=== PATIENT | female | born 1995 | race Asian ===

== ENCOUNTER 2018-06-02 07:45 | Inpatient (IN) ==
[2018-06-02] MEDS ORDERED: LACTATED RINGER'S 1,000 ML IV PRN (14:24)
[2018-06-02] MEDS ORDERED: OXYTOCIN 30 UNITS/500 ML BAG IV PRN (14:24)
--- NOTE | 2018-06-02 14:45 | History & Physical Report ---
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 at 36.2 wks with ICP s/p steroid series for FLM Proteinuria with normal B's, labs Discussed the findings, prematurity, risks of ICP, [facility] recommendation After all discussion she agreed with IOL/ Cervical ripening Plan admit, monitor, labs, cervical ripening with PO Cytotec (2) Proteinuria affecting in third trimester: History of Present Illness Chief Complaint: Induction Primary Care Provider: [facility] Patient is a 22 yo at 36.2 wks who is scheduled for IOL for ICP, recommended by MFM She has been having generalized itching for 4 months Nothing has been helping Her bile acids were elevated, started on Trino about 2 weeks ago, still itching Her bile acids were 12 about 3 weeks ago Recommended by M to complete steroids series and then IOL after 36 weeks She had seconds dose yesterday afternoon She had been having PARKS's not going away with Tylenol for the last 2 weeks She was spilling protein in urine, 2-3+ Her BPs have been normal, platelets LFTS were normal Her P/C ratio was over 800 mg. She c/o increased swelling for the last few days, on her feet and hands. Denies ctxs/ LOF/VB +FM's Allergies Allergy/AdvReac Type Severity Reaction Status Date / Time peach Allergy Rash Verified 04/30/18 20:56 Home Medications Home Medications Medication Instructions Recorded Confirmed Type ursodiol 300 mg PO BID 06/02/18 06/02/18 History Patient History Medical History Depression situational; no meds Kidney stones Polycystic ovarian syndrome dx 2017 Family History Grandmother (Paternal) Cancer Mother Hypertension Social History Preferred Language: [place] Communication Ability: Effective Beliefs That Will Affect Care: None marital status: Current Living Situation: Spouse Other Information That Helps Us Care for You: No Feels Safe at Home: Yes Smoking Status: Never smoker Hx Alcohol Use: No Hx Substance Use: No [employer] History No h/o STD's, no GC/ Chlamydia/ HSV Review of Systems All systems reviewed & are unremarkable except as noted in HPI & below Physical Exam Vital Signs (Past 24 Hours): Last Vital Signs Temp 36.7 C 06/02/18 13:14 Pulse 100 H 06/02/18 13:19 Resp 24 06/02/18 13:14 BP 118/70 06/02/18 13:19 Constitutional: WD/WN, vitals as above well nourished and comfortable Gastrointestinal (Abdomen): Abd: soft, NT, gravid Musculoskeletal: Ext: NT, 1+/1+ edema, no clonus Genitourinary: Cervix: ft/ 50%/ -3, posterior, vertex Monitoring External Monitor 130's reactive Tocodynamometer No ctxs
[2018-06-02 14:50] LABS: Hematocrit (blood only) 30.3 % (37-47); Hemoglobin 10.2 g/dL (12.0-16.0); Mean Corpuscular Volume 87.1 fL (80-100); Mean Platelet Volume 9.6 fL (7.4-10.4); Nucleated RBC # (auto) 0.06 K/uL (0-0); Nucleated RBC % (auto) 0.6 %; Platelet Count 248 K/uL (130-400); RDW Coefficient of Variation 13.4 % (11.5-14.5); RDW Standard Deviation 42.7 fL (36.4-46.3); Red Blood Count 3.48 M/uL (4.2-5.4); White Blood Count 10.08 K/uL (4.8-10.8)
[2018-06-02 14:51] LABS: Mean Corpuscular Hgb Conc 33.7 g/dL (32-36)
[2018-06-02] MEDS ORDERED: miSOPROStol 50 MCG TAB PO SCH (15:00)
[2018-06-02 15:07] LABS: Albumin Level 2.8 gm/dl (3.4-5.0); BUN Creatinine Ratio 21.2 (10-20); Calcium 8.5 mg/dl (8.5-10.1); Creatinine Clr Calc Pharmacy 134.3 ml/min; Est GFR (African American) 139.7; Est GFR (Non-African American) 120.6; Potassium 3.9 mmol/L (3.5-5.1)
[2018-06-02 15:10] LABS: Albumin Globulin Ratio 0.7 (0.9-2); Bilirubin,Total 0.1 mg/dl (0.2-1); Globulin 4.1 gm/dl (2.5-4.0); Total Protein 6.9 gm/dl (6.4-8.2)
[2018-06-02] MEDS ORDERED: BUTORPHANOL TARTRATE 2 MG/ML VIAL IV PRN (15:21)
[2018-06-02] MEDS ORDERED: ACETAMINOPHEN 325 MG TAB PO PRN (15:21)
[2018-06-02] MEDS: PRENATAL VITAMIN 1 TAB PO SCH (16:55)
[2018-06-02] MEDS: LACTATED RINGER'S 1,000 ML IV SCH (17:15)
--- NOTE | 2018-06-02 19:20 | Obstetrical Progress Note ---
Date of Service June 02, 2018 Subjective Patient is reevaluated Due for 2nd dose of Cytotec She feels ctxs, some mild some painful 06/09 No LOF/VB +FM FHR categ I [place] ctxs q1-4 min, some mild some moderate Will hold for next dose for now and then reevaluate Physical Exam Vital Signs (Past 24 Hours): Last Vital Signs Temp 36.8 C 06/02/18 17:18 Pulse 94 H 06/02/18 19:15 Resp 18 06/02/18 17:18 BP 140/86 06/02/18 19:15
--- NOTE | 2018-06-02 19:41 | Obstetrical Progress Note ---
Date of Service June 02, 2018 Subjective Her ctxs spaced out after she used BR Desires to eat Plan to feed her with dinner and then Cervidil Continue to monitor Physical Exam Vital Signs (Past 24 Hours): Last Vital Signs Temp 37.2 C 06/02/18 19:15 Pulse 94 H 06/02/18 19:15 Resp 16 06/02/18 19:15 BP 140/86 06/02/18 19:15
[2018-06-02] MEDS ORDERED: DINOPROSTONE 10 MG INSERT PV ONE (20:00)
[2018-06-02] MEDS: URSODIOL 300 MG CAP PO SCH (20:50)
[2018-06-03] MEDS: LACTATED RINGER'S 1,000 ML IV SCH ×4 (00:07→16:17)
--- NOTE | 2018-06-03 06:42 | Obstetrical Progress Note ---
Date of Service June 03, 2018 Subjective Patient is reevaluated She received Stadol for pain at 0330am , it helped to sleep Now pain is coming back Contractions q 1-2 min Cervidil is removed, cervix 1-2 cm/ 60%/ -3, posterior FHR 130's with accels and decreased variability since IV stadol, no decels IVF bolus is going Continue to monitor closely Physical Exam Vital Signs (Past 24 Hours): Last Vital Signs Temp 36.8 C 06/03/18 03:35 Pulse 91 H 06/03/18 06:38 Resp 20 06/03/18 03:35 BP 132/82 06/03/18 04:29 Pulse Ox 97 06/03/18 06:38
[2018-06-03] MEDS ORDERED: fentaNYL citrate 100 MCG/2 ML VIAL ONE (08:25)
[2018-06-03] MEDS ORDERED: ePHEDrine sulfate 50 MG/ML AMP ONE (08:25)
[2018-06-03] MEDS ORDERED: BUPIVACAINE 0.25% 30 ML VIAL ONE ×2 (08:25→19:23)
[2018-06-03] MEDS ORDERED: fentaNYL 2MCG/ML ROPIV 1.25MG/ML 100 ML BAG EPI ONE (08:26)
[2018-06-03] MEDS ORDERED: NALOXONE HCL 0.4 MG/1 ML VIAL/CARP IV PRN (08:29)
[2018-06-03] MEDS ORDERED: fentaNYL 2MCG/ML ROPIV 1.25MG/ML 100 ML BAG EPI PRN (08:29)
[2018-06-03] MEDS ORDERED: ONDANSETRON INJ 2 MG/ML 2 ML VIAL IV PRN (08:29)
[2018-06-03] MEDS ORDERED: DiphenhydrAMINE HCL 50 MG/ML VIAL IV PRN (08:29)
[2018-06-03] MEDS ORDERED: ePHEDrine sulfate 50 MG/ML AMP IV PRN (08:29)
[2018-06-03] MEDS ORDERED: NALBUPHINE HCL INJ 10 MG/ML AMP IV PRN (08:29)
[2018-06-03] MEDS ORDERED: NALOXONE HCL 1 MG in SODIUM CHLORIDE 0.9% 1000ML 1,000 ML IV PRN (08:29)
[2018-06-03] MEDS ORDERED: LACTATED RINGER'S 1,000 ML IV PRN ×2 (08:29→15:40)
--- NOTE | 2018-06-03 08:30 | Anesthesiology Consultation ---
Date of Service June 03, 2018 Assessment & Plan (1) Encounter for pre-operative examination: Chart Review Chart Review: Patient NOT seen in Pre Admission Testing and Acceptable Risk for Labor Epidural Consults Requested none History Height/Weight Height: 5 ft 6.14 in Weight: 81.193 kg Allergies Allergy/AdvReac Type Severity Reaction Status Date / Time peach Allergy Rash Verified 04/30/18 20:56 Medications Home Medications Medication Instructions Recorded Confirmed Last Taken ursodiol 300 mg PO BID 06/02/18 06/02/18 06/01/18 19:00 1 Active Medications Generic Name Dose Route Start Last Admin Trade Name Freq PRN Reason Stop Dose Admin Butorphanol Tartrate 1 mg 06/02/18 15:21 06/03/18 03:36 Stadol IV 07/02/18 15:20 1 mg Q3HWA PRN Administration Pain Diphenhydramine HCl 25 mg 06/02/18 15:22 06/03/18 00:13 Benadryl Capsule PO 07/02/18 15:21 25 mg Q8 PRN Administration Itching Lactated Ringer's 1,000 mls @ 125 mls/hr 06/02/18 14:30 06/03/18 08:35 Lr IV 06/04/18 14:29 125 mls/hr .Q8H RAIN Administration Prenat Multivit/[place]/Iron/Folic Ac 1 tab 06/02/18 16:00 06/02/18 16:55 Vitamin PO 07/02/18 15:59 1 tab QAM RAIN Administration Ursodiol 300 mg 06/02/18 21:00 06/02/18 20:50 Actigall PO 07/02/18 20:59 300 mg BID RAIN Administration Past Medical History Medical History Depression situational; no meds Kidney stones Polycystic ovarian syndrome dx 2017 Past Family History Family History Grandmother (Paternal) Cancer Mother Hypertension Past Anesthesia History No Hx of Anesthesia Complications and No Family Hx of Anesthesia Complications History of PONV No Motion Sickness Screening History of Motion Sickness: No Social History Smoking Status: Never smoker Hx Alcohol Use: No Hx Substance Use: No substance use type: does not use Exercise / Class Metabolic Activity II 4-5 Yardwork/Stairs/Walk up hill Physical Exam Vital Signs Last Vital Signs Temp 36.7 C 06/03/18 07:13 Pulse 80 06/03/18 07:49 Resp 20 06/03/18 07:13 BP 151/89 H 06/03/18 07:49 Pulse Ox 97 06/03/18 06:58 Testing Laboratory Results 06/02/18 14:39 06/02/18 14:39
[2018-06-03] MEDS: URSODIOL 300 MG CAP PO SCH ×2 (09:14→21:20)
[2018-06-03] MEDS: PRENATAL VITAMIN 1 TAB PO SCH (09:14)
[2018-06-03] MEDS ORDERED: OXYTOCIN 30 UNITS/500 ML BAG IV PRN ×2 (15:40→20:50)
--- NOTE | 2018-06-03 15:40 | Obstetrical Progress Note ---
Date of Service June 03, 2018 Physical Exam Vital Signs (Past 24 Hours): Last Vital Signs Temp 37.3 C 06/03/18 15:06 Pulse 96 H 06/03/18 15:36 Resp 18 06/03/18 15:06 BP 130/78 06/03/18 15:29 Pulse Ox 97 06/03/18 15:36 Genitourinary: OB Exam Abdomen: + heart tones, + vertex and + irregular contractions Manual OB Exam: + cervical dilation 2 cm, + cervical effacement 50%, + station high and + amniotic fluid clear OB Exam Monitor Tracing: + category I bedside ultrasound for confirmation of vertex Will start oxytocin to augment contractions had SROM clear fluid
[2018-06-03] MEDS ORDERED: BUPIVACAINE 0.25% 30 ML VIAL INJ ONE (19:26)
--- NOTE | 2018-06-03 20:47 | Procedure Note ---
Vaginal Delivery Summary Date of Service June 03, 2018 Delivery Note live female AMADA over intact perineum with Apgars 9/9 weight pending. Nuchal cord x1 reduced at delivery. Delayed cord clamping followed by cord blood and delivery of intact placenta. No tears. EBL 250 ml. Final sponge and instrument count arre correct. Mom and baby stable.
[2018-06-03] MEDS ORDERED: BENZOCAINE 20% AER SPR 82.5 GM CAN EXT PRN (20:50)
[2018-06-03] MEDS ORDERED: BISACODYL 10 MG SUPP PR PRN (20:50)
[2018-06-03] MEDS ORDERED: ACETAMINOPHEN 325 MG TAB PO PRN (20:50)
[2018-06-03] MEDS ORDERED: SUPERCREAM 0.870% 15 GM JAR EXT PRN (20:50)
[2018-06-03] MEDS ORDERED: HYDROCORTISONE ACETATE 25 MG SUPP PR PRN (20:50)
[2018-06-03] MEDS: DOCUSATE SODIUM 100 MG CAP PO SCH (21:21)
--- NOTE | 2018-06-03 21:23 | Anesthesia Procedure Note ---
Date of Service June 03, 2018 Anesthesia Post Epidural Note Vital Signs Vital Signs: Temp Pulse Resp BP Pulse Ox 37.4 C 96 H 18 150/93 H 98 06/03/18 19:14 06/03/18 21:20 06/03/18 21:14 06/03/18 21:20 06/03/18 20:31 Notes Mental Status: alert / awake / arousable Patient Amnestic to Procedure: No Nausea / Vomiting: adequately controlled Pain: adequately controlled Airway Patency, RR, SpO2: stable & adequate BP & HR: stable & adequate Hydration State: stable & adequate Neuraxial Anesthesia: was administered and sensory block is resolving Anesthetic Complications: no major complications apparent and Pt Satisfied with anesthetic care Epidural: Removed without complications and With tip intact
[2018-06-03] MEDS: IBUPROFEN 600 MG TAB PO PRN (23:05)
[2018-06-04] MEDS: IBUPROFEN 600 MG TAB PO PRN ×4 (05:21→20:03)
[2018-06-04 06:36] LABS: Hematocrit (blood only) 30.6 % (37-47); Hemoglobin 10.3 g/dL (12.0-16.0); Mean Corpuscular Hgb Conc 33.7 g/dL (32-36); Mean Corpuscular Volume 87.4 fL (80-100); Mean Platelet Volume 9.9 fL (7.4-10.4); Platelet Count 195 K/uL (130-400); RDW Coefficient of Variation 13.3 % (11.5-14.5); RDW Standard Deviation 42.4 fL (36.4-46.3); White Blood Count 12.11 K/uL (4.8-10.8)
[2018-06-04] MEDS ORDERED: DIPHTHERIA/TETANUS/PERTUSSIS 0.5 ML SYR/VIAL IM ONE (09:00)
[2018-06-04] MEDS: PRENATAL VITAMIN 1 TAB PO SCH (09:03)
[2018-06-04] MEDS: DOCUSATE SODIUM 100 MG CAP PO SCH ×2 (09:03→20:03)
[2018-06-04] MEDS: URSODIOL 300 MG CAP PO SCH ×2 (09:04→20:04)
--- NOTE | 2018-06-04 10:17 | Obstetrical Progress Note ---
Date of Service June 04, 2018 Assessment & Plan (1) normal course: PPD #1 pt doing well no complaints anticipate disch tomorrow Subjective Ambulation: ambulating normally Voiding: no voiding problems Passing Gas:: Yes Diet Tolerance:: regular diet Lochia:: Small Feeding Type:: breast feeding Review of Systems All systems reviewed & are unremarkable except as noted in HPI & below Physical Exam Vital Signs (Past 24 Hours) Last Vital Signs Temp 36.9 C 06/04/18 03:25 Pulse 90 06/04/18 03:25 Resp 16 06/04/18 03:25 BP 138/88 06/04/18 03:25 Pulse Ox 96 06/04/18 03:25 Constitutional WD/WN, vitals as above well developed and well nourished Eyes PERRL, conjunctivae normal, anicteric sclerae Neck trachea midline, no thyromegaly Respiratory normal respiratory effort, lungs clear to auscultation Auscultation: no crackles, no rales and no wheezes Cardiovascular RRR, no murmur, no edema Gastrointestinal (Abdomen) normal bowel sounds, soft, nontender, no hepatosplenomegaly Uterus is below umbilicus Musculoskeletal no cyanosis or clubbing, extremities motor strength 5/5 Skin no rashes, warm and dry Neurologic patellar DTR's 2+ bilat, sensation intact Psychiatric A+Ox3, euthymic affect Genitourinary normal external appearance
[2018-06-04] MEDS ORDERED: BISACODYL 5 MG TABEC PO SCH (20:00)
[2018-06-05] MEDS: IBUPROFEN 600 MG TAB PO PRN (06:32)
[2018-06-05 07:21] LABS: Hematocrit (blood only) 30.4 % (37-47); Hemoglobin 10.3 g/dL (12.0-16.0)
[2018-06-05] MEDS: DOCUSATE SODIUM 100 MG CAP PO SCH (08:26)
[2018-06-05] MEDS: PRENATAL VITAMIN 1 TAB PO SCH (08:26)
[2018-06-05] MEDS: URSODIOL 300 MG CAP PO SCH (08:26)
--- NOTE | 2018-06-05 09:47 | Obstetrical Progress Note ---
Date of Service June 05, 2018 Subjective Patient is seen and examined. She feels well, no complaints. Ambulating without dizziness Voiding without difficulty Tolerating regular diet with out N&V Bleeding is minimal No fever/ chills/ CP/ SOB/ N&V/ Leg pain Breast feeding without problems Vital Signs Temp Pulse Resp BP Pulse Ox 06/04/18 23:25 36.7 C 87 18 127/86 06/04/18 19:45 36.3 C L 87 18 132/87 06/04/18 16:15 36.4 C L 78 16 128/86 97 06/04/18 12:45 36.7 C 80 18 146/88 H 06/05/18 Range/Units 06:37 Hgb 10.3 L (12.0-16.0) g/dL Hct 30.4 L (37-47) % PE: General: Alert, orientedx3, NAD Abd: soft, NT, fundus firm, below Umbilicus Perineum intact, Lochia rubra minimal Ext; NT, no edema AP: yo s/p , ppd# 2 VSS Afebrile doing well Continue routine care All questions were answered D/C home , f/u in office Physical Exam Vital Signs (Past 24 Hours): Last Vital Signs Temp 36.7 C 06/04/18 23:25 Pulse 87 06/04/18 23:25 Resp 18 06/04/18 23:25 BP 127/86 06/04/18 23:25 Pulse Ox 97 06/04/18 16:15
== END 2018-06-05 12:05 | disposition home or self-care (01) | DRG 807 ==
LOC: 4S1 13:04 → 4S2 06-03 23:11